=== PATIENT | male | born 1945 | race African-American/Black ===

== ENCOUNTER 2018-05-01 13:18 | Inpatient (IN) | payer MEDICARE, OTHER ==
[~2018-05-01] VITALS: Ht 185.4 cm; Wt 118.4 kg
[2018-05-01] MEDS ORDERED: IPRATROPIUM BROMIDE (0.02%) 0.5MG/2.5ML NEB HHN STA (14:16)
[2018-05-01] MEDS ORDERED: PREDNISONE 20MG TABLET PO STA (14:16)
[2018-05-01] MEDS ORDERED: ALBUTEROL (0.083%) 2.5MG/3ML NEB HHN STA (14:16)
[2018-05-01 14:39] LABS: BASOPHILS % 0.4 % (0.0-2.0); EOSINOPHILS % 1.9 % (0.0-5.0); HEMATOCRIT. 31.9 % (42.0-52.0); HEMOGLOBIN. 10.2 g/dL (14.0-18.0); LYMPHOCYTES % 10.5 % (20.0-50.0); MEAN CORPUSCULAR HEMOGLOBIN 24.4 pg (28.0-32.0); MEAN CORPUSCULAR VOLUME 76.2 fL (80.0-94.0); MEAN PLATELET VOLUME 7.1 fl (7.4-10.4); NEUTROPHILS % 75.2 % (40.0-76.0); PLATELET 189 x1000/uL (130-400); RED BLOOD CELL COUNT 4.19 mill/uL (4.7-6.1); RED CELL DISTRIBUTION WIDTH 16.7 % (11.6-14.6)
[2018-05-01 14:41] LABS: CHLORIDE 105 mEq/L (98-107)
[2018-05-01 14:43] LABS: INR 1.2; PROTHROMBIN TIME 12.3 sec (9.1-11.1)
[2018-05-01] MEDS ORDERED: NITROGLYCERIN OINT 1GM/INCH UDPKT TD ONE (15:00)
[2018-05-01] MEDS ORDERED: ASPIRIN 325MG TABLET PO ONE (15:00)
[2018-05-01] MEDS ORDERED: FUROSEMIDE 20MG/2ML VIAL IVP ONE (15:00)
[2018-05-01] MEDS ORDERED: DEXTROSE 50% WATER 50ML SYRINGE IV PRN ×2 (22:00)
[2018-05-01] MEDS ORDERED: DOCUSATE SODIUM 100MG CAPSULE PO PRN (22:00)
[2018-05-01] MEDS ORDERED: MAGNESIUM/ALUMINUM HYDROXIDE/SIMETHICONE 30ML UDC PO PRN (22:00)
[2018-05-01] MEDS ORDERED: CLONIDINE 0.1MG TABLET PO PRN (22:00)
[2018-05-01] MEDS ORDERED: IPRATROPIUM/ALBUTEROL 0.5-3(2.5)MG/3ML NEB INH PRN (22:00)
[2018-05-01] MEDS ORDERED: INSULIN GLARGINE UD 100 UNITS/ML SYR SUBCUT SCH (22:00)
[2018-05-01] MEDS ORDERED: ACETAMINOPHEN 325MG TABLET PO PRN (22:00)
[2018-05-01] MEDS ORDERED: ONDANSETRON HCL 4MG/2ML INJ IV PRN (22:00)
[2018-05-01] MEDS ORDERED: FUROSEMIDE 40MG/4ML VIAL IV NR (22:15)
[2018-05-02] VITALS (7 sets, daily range): BP systolic 132–165; BP diastolic 62–91
[2018-05-02] MEDS ORDERED: ENOXAPARIN 120MG/0.8ML SYR SUBCUT SCH
[2018-05-02] MEDS: BLOOD SUGAR DIAGNOSTIC STRIP TEST SCH ×5 (00:04→20:56)
[2018-05-02] MEDS: INSULIN LISPRO 100 UNITS/ML SUBCUT SCH ×2 (00:10→06:37)
[2018-05-02] MEDS ORDERED: TAMS0.4C31 MT (02:12)
[2018-05-02] MEDS ORDERED: GABA-531 MT (02:12)
[2018-05-02] MEDS ORDERED: RIVA20TA MT (02:12)
[2018-05-02] MEDS ORDERED: METF-416 MT (02:12)
[2018-05-02] MEDS ORDERED: BENA20TA10 MT (02:12)
[2018-05-02] MEDS ORDERED: INSU100I28 SQ (02:14)
[2018-05-02 06:56] LABS: HEMATOCRIT. 32.3 % (42.0-52.0); HEMOGLOBIN. 10.2 g/dL (14.0-18.0); MEAN CORPUSCULAR HEMOGLOBIN 24.2 pg (28.0-32.0); MEAN CORPUSCULAR VOLUME 76.9 fL (80.0-94.0); MEAN PLATELET VOLUME 7.5 fl (7.4-10.4); PLATELET 201 x1000/uL (130-400); RED CELL DISTRIBUTION WIDTH 16.6 % (11.6-14.6)
[2018-05-02 07:28] LABS: CHLORIDE 104 mEq/L (98-107)
[2018-05-02 07:37] LABS: LDL CHOLESTEROL 42 mg/dL (5-100); PHOSPHORUS 4.2 mg/dL (2.5-4.9)
[2018-05-02 07:39] LABS: HDL CHOLESTEROL 45 mg/dL (40-59); T4 FREE 1.29 ng/dL (0.76-1.46)
[2018-05-02] MEDS: FUROSEMIDE 40MG/4ML VIAL IV SCH (10:01)
[2018-05-02] MEDS: METFORMIN HCL 500MG TABLET PO SCH ×2 (10:13→16:40)
[2018-05-02] MEDS: BENAZEPRIL 10MG TABLET PO SCH (11:25)
[2018-05-02] MEDS: TAMSULOSIN HCL 0.4MG SR CAPSULE PO SCH (11:25)
[2018-05-02 13:58] LABS: PLATELET ESTIMATE NORMAL
[2018-05-02] MEDS: HYDRALAZINE HCL 25MG TABLET PO SCH ×2 (14:45→21:04)
[2018-05-02] MEDS: RIVAROXABAN 20 MG TABLET PO SCH (16:40)
[2018-05-02] MEDS: GABAPENTIN 300MG CAPSULE PO SCH (18:42)
[2018-05-02] MEDS: TRAMADOL 50MG TABLET PO PRN (18:42)
[2018-05-02] MEDS ORDERED: INSULIN GLARGINE UD 100 UNITS/ML SYR SUBCUT SCH (22:00)
[2018-05-03] VITALS (24 sets, daily range): BP systolic 122–180; BP diastolic 64–96
[2018-05-03] MEDS: BLOOD SUGAR DIAGNOSTIC STRIP TEST SCH ×5 (06:15→21:05)
[2018-05-03] MEDS: HYDRALAZINE HCL 25MG TABLET PO SCH ×3 (06:28→21:32)
[2018-05-03] MEDS: METFORMIN HCL 500MG TABLET PO SCH ×2 (07:15→17:50)
[2018-05-03 07:44] LABS: BASOPHILS % 0.4 % (0.0-2.0); EOSINOPHILS % 2.1 % (0.0-5.0); HEMATOCRIT. 31.7 % (42.0-52.0); HEMOGLOBIN. 9.9 g/dL (14.0-18.0); LYMPHOCYTES % 19.7 % (20.0-50.0); MEAN CORPUSCULAR HEMOGLOBIN 24.3 pg (28.0-32.0); MEAN CORPUSCULAR VOLUME 77.8 fL (80.0-94.0); MEAN PLATELET VOLUME 7.4 fl (7.4-10.4); MONOCYTES % 10.7 % (2.0-8.0); NEUTROPHILS % 67.1 % (40.0-76.0); PLATELET 219 x1000/uL (130-400); RED BLOOD CELL COUNT 4.08 mill/uL (4.7-6.1); RED CELL DISTRIBUTION WIDTH 16.2 % (11.6-14.6)
[2018-05-03 08:02] LABS: CHLORIDE 103 mEq/L (98-107)
[2018-05-03] MEDS ORDERED: MIDAZOLAM HCL 2 MG/2 ML VIAL ONE (08:52)
[2018-05-03] MEDS ORDERED: FENTANYL CITRATE/PF 50MCG/ML 2ML VIAL ONE ×2 (08:52→10:24)
[2018-05-03] MEDS ORDERED: CEFAZOLIN SODIUM 1000MG/VIAL ONE (08:54)
[2018-05-03] MEDS ORDERED: EPHEDRINE SULFATE 50MG/ML VIAL ONE (08:54)
[2018-05-03] MEDS ORDERED: IOHEXOL-300 100 ML BOTTLE ONE (08:54)
[2018-05-03] MEDS ORDERED: LIDOCAINE HCL 1% 20ML VIAL (Pyxis) INJ ONE (08:55)
[2018-05-03] MEDS ORDERED: GENTAMICIN/NS IRRIGATION 500 ML IR ONE (08:57)
[2018-05-03] MEDS ORDERED: GENTAMICIN SULF 40MG/ML 2ML VIAL ONE (08:57)
[2018-05-03] MEDS: BENAZEPRIL 10MG TABLET PO SCH (09:00)
[2018-05-03] MEDS: FUROSEMIDE 40MG/4ML VIAL IV SCH (09:00)
[2018-05-03] MEDS: GABAPENTIN 300MG CAPSULE PO SCH (09:00)
[2018-05-03] MEDS ORDERED: PROPOFOL 10MG/ML 100ML 100 ML IV SCH (09:00)
[2018-05-03] MEDS: TAMSULOSIN HCL 0.4MG SR CAPSULE PO SCH (09:00)
[2018-05-03] MEDS ORDERED: PROPOFOL 10MG/ML 100ML 100 ML IV ONE (09:21)
[2018-05-03] MEDS ORDERED: FUROSEMIDE 20MG/2ML VIAL ONE (10:13)
[2018-05-03] MEDS ORDERED: PROPOFOL 10MG/ML 100ML 100 ML IV PRN (12:30)
[2018-05-03] MEDS ORDERED: IPRATROPIUM/ALBUTEROL 0.5-3(2.5)MG/3ML NEB HHN PRN (12:30)
[2018-05-03] MEDS: PANTOPRAZOLE SODIUM 40 MG/VIAL IV SCH (13:26)
[2018-05-03 13:28] LABS: BG BASE EXCESS 1.4 mmol/L (-2.0-2.0); BG CARBOXYHEMOGLOBIN 0.9 % (0.5-1.5); BG DEOXYHEMOGLOBIN 4.4 % (0.0-5.0); BG FRACTION INSPIRED OXYGEN 50; BG HCO3 ACT 29.8 mmol/L (22.0-26.0); BG METHEMOGLOBIN 0.2 % (0.0-1.5); BG OXYGEN SATURATION 95.6 % (92.0-98.5); BG OXYHEMOGLOBIN 94.5 % (94.0-97.0); BG PCO2 66.6 mmHg (35.0-45.0); BG PH 7.268 (7.350-7.450); BG PO2 91.8 mmHg (75.0-100.0); BG PRESSURE SUPPORT 12; BG SAMPLE SITE RIGHT RADIAL; BG TIDAL VOLUME(mL) 500 mL; BG TOTAL HEMOGLOBIN 11.8 g/dL (12.0-18.0); BG VENT MODE VENT - SIMV; BG VENT RATE 10 set
[2018-05-03] MEDS: IPRATROPIUM/ALBUTEROL 0.5-3(2.5)MG/3ML NEB HHN SCH ×3 (13:39→20:35)
[2018-05-03] MEDS ORDERED: RACEPINEPHRINE 2.25% 0.5ML NEB VIAL HHN PRN (14:15)
[2018-05-03] MEDS ORDERED: RACEPINEPHRINE 2.25% 0.5ML NEB VIAL ONE (14:21)
[2018-05-03] MEDS ORDERED: HYDRALAZINE 20MG/ML VIAL IV PRN (14:30)
[2018-05-03] MEDS ORDERED: DEXTROSE 50% WATER 50ML SYRINGE IV PRN (15:00)
[2018-05-03 15:07] LABS: BG BASE EXCESS 2.1 mmol/L (-2.0-2.0); BG CARBOXYHEMOGLOBIN 0.9 % (0.5-1.5); BG DEOXYHEMOGLOBIN 1.6 % (0.0-5.0); BG FRACTION INSPIRED OXYGEN 100; BG HCO3 ACT 28.8 mmol/L (22.0-26.0); BG METHEMOGLOBIN 0.2 % (0.0-1.5); BG OXYGEN SATURATION 98.4 % (92.0-98.5); BG OXYHEMOGLOBIN 97.3 % (94.0-97.0); BG PCO2 53.9 mmHg (35.0-45.0); BG PH 7.345 (7.350-7.450); BG PO2 129.8 mmHg (75.0-100.0); BG SAMPLE SITE RIGHT BRACHIAL; BG TOTAL HEMOGLOBIN 12.1 g/dL (12.0-18.0); BG VENT MODE MASK - NRB
[2018-05-03] MEDS: ACETYLCYSTEINE 100MG/ML 10% VIAL 4ML INH SCH (16:55)
[2018-05-03] MEDS: CEFAZOLIN 1000MG PREMIX 50 ML IV SCH (17:50)
[2018-05-03] MEDS: INSULIN LISPRO 100 UNITS/ML SUBCUT SCH ×2 (18:03→21:33)
[2018-05-03] MEDS: ENALAPRIL 1.25MG/ML VIAL 1ML IV SCH (18:05)
[2018-05-03] MEDS: RIVAROXABAN 20 MG TABLET PO SCH (18:11)
[2018-05-03] MEDS: FUROSEMIDE 40MG/4ML VIAL IVP SCH (21:31)
[2018-05-03] MEDS: THROAT LOZENGES-BENZOCAINE/MENTH/CETYLPYRD CL LOZENGES MM PRN (21:40)
[2018-05-03] MEDS: MORPHINE SULFATE 4 MG/ML CPJ (NOT FOR IM USE) IV PRN (21:59)
[2018-05-03] MEDS ORDERED: INSULIN GLARGINE UD 100 UNITS/ML SYR SUBCUT SCH (22:00)
[2018-05-04] VITALS (29 sets, daily range): BP systolic 108–164; BP diastolic 42–100
[2018-05-04] MEDS: ACETYLCYSTEINE 100MG/ML 10% VIAL 4ML INH SCH ×2 (00:21→08:24)
[2018-05-04] MEDS: IPRATROPIUM/ALBUTEROL 0.5-3(2.5)MG/3ML NEB HHN SCH ×6 (00:21→20:42)
[2018-05-04] MEDS: ENALAPRIL 1.25MG/ML VIAL 1ML IV SCH ×3 (00:53→13:04)
[2018-05-04] MEDS: CEFAZOLIN 1000MG PREMIX 50 ML IV SCH (01:58)
[2018-05-04] MEDS: THROAT LOZENGES-BENZOCAINE/MENTH/CETYLPYRD CL LOZENGES MM PRN ×3 (02:37→18:15)
[2018-05-04] MEDS: MORPHINE SULFATE 4 MG/ML CPJ (NOT FOR IM USE) IV PRN ×2 (02:42→10:30)
[2018-05-04 04:45] LABS: HEMATOCRIT. 35.2 % (42.0-52.0); HEMOGLOBIN. 11.3 g/dL (14.0-18.0); MEAN CORPUSCULAR HEMOGLOBIN 24.6 pg (28.0-32.0); MEAN CORPUSCULAR VOLUME 76.5 fL (80.0-94.0); MEAN PLATELET VOLUME 7.3 fl (7.4-10.4); PLATELET 255 x1000/uL (130-400); RED BLOOD CELL COUNT 4.61 mill/uL (4.7-6.1); RED CELL DISTRIBUTION WIDTH 16.6 % (11.6-14.6)
[2018-05-04 04:55] LABS: CHLORIDE 100 mEq/L (98-107)
[2018-05-04] MEDS: HYDRALAZINE HCL 25MG TABLET PO SCH ×3 (06:19→22:49)
[2018-05-04] MEDS: METFORMIN HCL 500MG TABLET PO SCH ×2 (08:20→17:58)
[2018-05-04] MEDS: PANTOPRAZOLE SODIUM 40 MG/VIAL IV SCH (08:49)
[2018-05-04] MEDS: BLOOD SUGAR DIAGNOSTIC STRIP TEST SCH ×4 (08:49→21:46)
[2018-05-04] MEDS: FUROSEMIDE 40MG/4ML VIAL IVP SCH ×2 (08:49→17:58)
[2018-05-04] MEDS: INSULIN LISPRO 100 UNITS/ML SUBCUT SCH ×4 (08:50→21:48)
[2018-05-04] MEDS: GABAPENTIN 300MG CAPSULE PO SCH (09:00)
[2018-05-04] MEDS: BENAZEPRIL 10MG TABLET PO SCH (09:00)
[2018-05-04] MEDS: TAMSULOSIN HCL 0.4MG SR CAPSULE PO SCH (09:00)
[2018-05-04 10:00] LABS: PLATELET ESTIMATE NORMAL
[2018-05-04] MEDS ORDERED: HYDRALAZINE HCL 25MG TABLET PO SCH (14:00)
[2018-05-04] MEDS: RIVAROXABAN 20 MG TABLET PO SCH (17:58)
[2018-05-04] MEDS: AMLODIPINE 5MG TABLET PO SCH (21:47)
[2018-05-04] MEDS: INSULIN GLARGINE UD 100 UNITS/ML SYR SUBCUT SCH (21:48)
[2018-05-04] MEDS ORDERED: INSULIN GLARGINE UD 100 UNITS/ML SYR SUBCUT SCH (22:00)
[2018-05-05] VITALS (11 sets, daily range): BP systolic 122–161; BP diastolic 67–110
[2018-05-05] MEDS: ACETYLCYSTEINE 100MG/ML 10% VIAL 4ML INH SCH ×3 (01:24→16:10)
[2018-05-05] MEDS: IPRATROPIUM/ALBUTEROL 0.5-3(2.5)MG/3ML NEB HHN SCH ×6 (01:24→21:34)
[2018-05-05] MEDS: THROAT LOZENGES-BENZOCAINE/MENTH/CETYLPYRD CL LOZENGES MM PRN ×2 (04:22→20:13)
[2018-05-05] MEDS: MORPHINE SULFATE 4 MG/ML CPJ (NOT FOR IM USE) IV PRN (04:22)
[2018-05-05] MEDS: HYDRALAZINE HCL 25MG TABLET PO SCH ×3 (06:30→21:48)
[2018-05-05] MEDS: BLOOD SUGAR DIAGNOSTIC STRIP TEST SCH ×4 (06:32→20:00)
[2018-05-05 06:37] LABS: BASOPHILS % 0.2 % (0.0-2.0); EOSINOPHILS % 0.2 % (0.0-5.0); HEMATOCRIT. 33.3 % (42.0-52.0); HEMOGLOBIN. 10.5 g/dL (14.0-18.0); LYMPHOCYTES % 9.7 % (20.0-50.0); MEAN CORPUSCULAR HEMOGLOBIN 24.2 pg (28.0-32.0); MEAN CORPUSCULAR VOLUME 76.5 fL (80.0-94.0); MEAN PLATELET VOLUME 7.3 fl (7.4-10.4); MONOCYTES % 10.9 % (2.0-8.0); PLATELET 240 x1000/uL (130-400); RED BLOOD CELL COUNT 4.35 mill/uL (4.7-6.1); RED CELL DISTRIBUTION WIDTH 16.9 % (11.6-14.6)
[2018-05-05 07:04] LABS: CHLORIDE 98 mEq/L (98-107)
[2018-05-05] MEDS: INSULIN LISPRO 100 UNITS/ML SUBCUT SCH ×4 (08:40→21:49)
[2018-05-05] MEDS: GABAPENTIN 300MG CAPSULE PO SCH (08:40)
[2018-05-05] MEDS: METFORMIN HCL 500MG TABLET PO SCH ×2 (08:41→17:58)
[2018-05-05] MEDS: BENAZEPRIL 10MG TABLET PO SCH (08:42)
[2018-05-05] MEDS: AMLODIPINE 5MG TABLET PO SCH ×2 (08:43→20:13)
[2018-05-05] MEDS: FUROSEMIDE 40MG/4ML VIAL IVP SCH (08:43)
[2018-05-05] MEDS: TAMSULOSIN HCL 0.4MG SR CAPSULE PO SCH (08:43)
[2018-05-05] MEDS: PANTOPRAZOLE SODIUM 40 MG/VIAL IV SCH (12:21)
[2018-05-05] MEDS: RIVAROXABAN 20 MG TABLET PO SCH (17:58)
[2018-05-05] MEDS: AMOXICILLIN/POTASSIUM CLAVULANATE 875/125MG TAB PO SCH (20:13)
[2018-05-05] MEDS: INSULIN GLARGINE UD 100 UNITS/ML SYR SUBCUT SCH (21:50)
[2018-05-06] VITALS (13 sets, daily range): BP systolic 122–154; BP diastolic 58–84
[2018-05-06] MEDS: THROAT LOZENGES-BENZOCAINE/MENTH/CETYLPYRD CL LOZENGES MM PRN ×3 (00:20→21:15)
[2018-05-06] MEDS: ACETYLCYSTEINE 100MG/ML 10% VIAL 4ML INH SCH ×3 (01:44→16:12)
[2018-05-06] MEDS: IPRATROPIUM/ALBUTEROL 0.5-3(2.5)MG/3ML NEB HHN SCH ×6 (01:44→20:57)
[2018-05-06] MEDS: BLOOD SUGAR DIAGNOSTIC STRIP TEST SCH ×4 (05:45→21:00)
[2018-05-06] MEDS: HYDRALAZINE HCL 25MG TABLET PO SCH ×3 (06:29→21:12)
[2018-05-06 07:24] LABS: BASOPHILS % 0.2 % (0.0-2.0); EOSINOPHILS % 0.9 % (0.0-5.0); HEMOGLOBIN. 10.6 g/dL (14.0-18.0); LYMPHOCYTES % 11.6 % (20.0-50.0); MEAN CORPUSCULAR HEMOGLOBIN 24.5 pg (28.0-32.0); MEAN CORPUSCULAR VOLUME 76.5 fL (80.0-94.0); MEAN PLATELET VOLUME 7.5 fl (7.4-10.4); MONOCYTES % 10.5 % (2.0-8.0); NEUTROPHILS % 76.8 % (40.0-76.0); PLATELET 234 x1000/uL (130-400); RED BLOOD CELL COUNT 4.31 mill/uL (4.7-6.1); RED CELL DISTRIBUTION WIDTH 16.1 % (11.6-14.6)
[2018-05-06 09:02] LABS: CHLORIDE 98 mEq/L (98-107)
[2018-05-06] MEDS: PANTOPRAZOLE SODIUM 40 MG/VIAL IV SCH (09:24)
[2018-05-06] MEDS: BENAZEPRIL 10MG TABLET PO SCH (09:24)
[2018-05-06] MEDS: METFORMIN HCL 500MG TABLET PO SCH ×2 (09:24→17:15)
[2018-05-06] MEDS: FUROSEMIDE 40MG TABLET PO SCH (09:25)
[2018-05-06] MEDS: TAMSULOSIN HCL 0.4MG SR CAPSULE PO SCH (09:25)
[2018-05-06] MEDS: AMOXICILLIN/POTASSIUM CLAVULANATE 875/125MG TAB PO SCH ×2 (09:25→21:11)
[2018-05-06] MEDS: AMLODIPINE 5MG TABLET PO SCH ×2 (09:25→21:11)
[2018-05-06] MEDS: TRAMADOL 50MG TABLET PO PRN (09:25)
[2018-05-06] MEDS: INSULIN LISPRO 100 UNITS/ML SUBCUT SCH ×4 (09:26→21:12)
[2018-05-06] MEDS: GABAPENTIN 300MG CAPSULE PO SCH (09:26)
[2018-05-06] MEDS: RIVAROXABAN 20 MG TABLET PO SCH (17:15)
[2018-05-06] MEDS: INSULIN GLARGINE UD 100 UNITS/ML SYR SUBCUT SCH (21:13)
[2018-05-07] VITALS (10 sets, daily range): BP systolic 132–160; BP diastolic 66–85
[2018-05-07] MEDS: ACETYLCYSTEINE 100MG/ML 10% VIAL 4ML INH SCH ×3 (00:58→16:53)
[2018-05-07] MEDS: IPRATROPIUM/ALBUTEROL 0.5-3(2.5)MG/3ML NEB HHN SCH ×5 (01:01→16:54)
[2018-05-07] MEDS: BLOOD SUGAR DIAGNOSTIC STRIP TEST SCH ×3 (06:10→17:12)
[2018-05-07] MEDS: HYDRALAZINE HCL 25MG TABLET PO SCH ×2 (06:11→13:07)
[2018-05-07] MEDS: TRAMADOL 50MG TABLET PO PRN (07:51)
[2018-05-07] MEDS: AMOXICILLIN/POTASSIUM CLAVULANATE 875/125MG TAB PO SCH ×2 (07:52→18:00)
[2018-05-07] MEDS: BENAZEPRIL 10MG TABLET PO SCH (07:52)
[2018-05-07] MEDS: GABAPENTIN 300MG CAPSULE PO SCH (07:53)
[2018-05-07] MEDS: FUROSEMIDE 40MG TABLET PO SCH (07:53)
[2018-05-07] MEDS: AMLODIPINE 5MG TABLET PO SCH (07:53)
[2018-05-07] MEDS: TAMSULOSIN HCL 0.4MG SR CAPSULE PO SCH (07:53)
[2018-05-07] MEDS: INSULIN LISPRO 100 UNITS/ML SUBCUT SCH ×3 (07:54→17:57)
[2018-05-07] MEDS: METFORMIN HCL 500MG TABLET PO SCH ×2 (08:01→17:56)
[2018-05-07] MEDS ORDERED: FAMOTIDINE 20MG TABLET PO SCH (09:00)
[2018-05-07] MEDS: RIVAROXABAN 20 MG TABLET PO SCH (17:56)
== END 2018-05-07 18:30 | disposition home health service (06) | DRG 242 ==
LOC: ER 13:18 → 5WST 15:04 → ENRESERV 22:29 → CVICU 05-03 12:00 → 3WST 05-04 23:27
PROVIDERS: ADMIT Family Medicine Adult Medicine; ATTEND Family Medicine Adult Medicine
PROC: 0JH606Z Insertion of Pacemaker, Dual Chamber into Chest Subcutaneous Tissue and Fascia, Open Approach (ICD-10-PCS; principal; 2018-05-03)
PROC: 02H63JZ Insertion of Pacemaker Lead into Right Atrium, Percutaneous Approach (ICD-10-PCS; 2018-05-03)
PROC: 02HK3JZ Insertion of Pacemaker Lead into Right Ventricle, Percutaneous Approach (ICD-10-PCS; 2018-05-03)
PROC: B5171ZZ Fluoroscopy of Left Subclavian Vein using Low Osmolar Contrast (ICD-10-PCS; 2018-05-03)
PROC: 5A09357 Assistance with Respiratory Ventilation, Less than 24 Consecutive Hours, Continuous Positive Airway Pressure (ICD-10-PCS; 2018-05-03)
DX: I49.5 Sick sinus syndrome (principal); J96.00 Acute respiratory failure, unspecified whether with hypoxia or hypercapnia; I50.33 Acute on chronic diastolic (congestive) heart failure; J18.1 Lobar pneumonia, unspecified organism; I48.4 Atypical atrial flutter; I24.9 Acute ischemic heart disease, unspecified; I11.0 Hypertensive heart disease with heart failure; E11.42 Type 2 diabetes mellitus with diabetic polyneuropathy; D50.9 Iron deficiency anemia, unspecified; E66.01 Morbid (severe) obesity due to excess calories; I48.91 Unspecified atrial fibrillation; G47.33 Obstructive sleep apnea (adult) (pediatric); F17.290 Nicotine dependence, other tobacco product, uncomplicated; R23.8 Other skin changes; Z96.652 Presence of left artificial knee joint; Z79.01 Long term (current) use of anticoagulants; Z79.4 Long term (current) use of insulin; Z90.49 Acquired absence of other specified parts of digestive tract; Z79.899 Other long term (current) drug therapy; Z71.3 Dietary counseling and surveillance; Z68.34 Body mass index [BMI] 34.0-34.9, adult; Z82.49 Family history of ischemic heart disease and other diseases of the circulatory system
CPT/HCPCS: 33208; 36415; 36600; 71045; 75820; 80048; 80061; 82375; 82805; 82962; 83735; 83880; 84100; 84439; 84443; 84478; 84481; 84484; 93005; 93306; 93970; 94640; 96374; 99285; C1785; C1892; C1893; C1898; C9113; J0360; J0690; J1580; J1650; J1815; J1940; J2250; J2270; J2405; J2704; J3010; J3490; J7040; J7050; J7512; J7608; J7611; J7620; Q9967; A4315